=== PATIENT | male | born 1975 | race Caucasian/White ===

== ENCOUNTER 2017-05-22 06:33 | Emergency (ER) | payer OTHER, SELFPAY ==
[2017-05-22] MEDS ORDERED: Azithromycin 250 MG TAB ONE (07:30)
== END 2017-05-22 07:40 | disposition home or self-care (01) ==
LOC: BURERS 06:33
DX: J02.0 Streptococcal pharyngitis (principal); F17.210 Nicotine dependence, cigarettes, uncomplicated
CPT/HCPCS: 87430; 99283

== ENCOUNTER 2018-03-03 07:53 | Emergency (ER) | payer SELFPAY ==
[2018-03-03 08:39] LABS: #Basophils 0.2 thou/uL (0.0-0.2); #Eosinphils 0.2 thou/uL (0.0-0.7); #Monocytes 0.9 thou/uL (0.11-0.59); #Neutrophils 10.4 thou/uL (1.40-6.50); %Basophils 1.3 % (0.0-1.0); %Eosinophils 1.4 % (0.0-10.0); %Lymphocytes 14.7 % (21.0-51.0); %Monocytes 6.3 % (0.0-10.0); %Neutrophils 76.2 % (42.0-75.0); Hemoglobin 16.2 g/dL (14.0-18.0); Mean Corpuscular HGB CONC 35.5 g/dL (32.0-36.0); Mean Corpuscular Hemoglobin 32.4 pg (27.0-31.0); Mean Corpuscular Volume 91.1 fL (78.0-98.0); Mean Platelet Volume 9.4 fL (7.4-10.4); Platelet Count 224 thou/uL (130-400); RBC Distribution Width 11.9 % (11.5-14.5); Red Blood Cell (RBC) Count 4.99 mill/uL (4.70-6.10); White Blood Cell (WBC) Count 13.7 thou/uL (4.8-10.8)
--- NOTE | 2018-03-03 08:52 | RAD ---
PORTABLE AP CHEST: Date: 03/03/18 HISTORY: Chest pain. COMPARISON: None available. FINDINGS: Cardiac silhouette and pulmonary vasculature are within normal limits. Calcified bilateral hilar lymp h nodes are seen, related to prior granulomatous disease. Lungs are clear. Osseous structures are int act. There is deformity involving the middle one-third right clavicle, likely related to remote heale d fracture. No other findings. IMPRESSION: No acute cardiopulmonary process. POS: H
[2018-03-03 09:00] LABS: ALT (SGPT) 13 U/L (8-55); AST (SGOT) 18 U/L (5-34); Albumin 4.3 g/dL (3.5-5.0); Alkaline Phosphatase 74 U/L (40-150); Anion Gap 12 mmol/L (10-20); BUN (Urea Nitrogen) 14 mg/dL (8.9-20.6); Bilirubin, Total 0.4 mg/dL (0.2-1.2); CK (CPK) 153 U/L (30-200); Calc. Creatinine Clearance 0 mL/min (70-130); Calcium 9.7 mg/dL (7.8-10.44); Carbon Dioxide 24 mmol/L (22-29); Chloride 107 mmol/L (98-107); Estimated GFR-MDRD Greater than 90; Globulin 3.3 g/dL (2.4-3.5); Glucose 92 mg/dL (70-105); Potassium 4.2 mmol/L (3.5-5.1); Protein, Total 7.6 g/dL (6.0-8.3); Sodium 139 mmol/L (136-145)
[2018-03-03 09:01] LABS: CKMB 1.3 ng/mL (0-6.6); Troponin I Less than 0.010 ng/mL (< 0.028)
[2018-03-03 09:10] LABS: Amphetamine Not Detected (NotDetected); Barbiturates Screen Not Detected (NotDetected); Benzodiazepine Screen Detected (NotDetected); Cocaine Metabolite Screen Not Detected (NotDetected); Medtox Control Line Valid? VALID (VALID); Methadone Not Detected (NotDetected); Methamphetamine Not Detected (NotDetected); Opiate Screen Not Detected (NotDetected); Oxycodone Screen Not Detected (NotDetected); Phencyclidine (PCP) Not Detected (NotDetected); THC/Cannabinoid Screen Not Detected (NotDetected); Tricyclic Screen Not Detected (NotDetected)
== END 2018-03-03 09:39 | disposition short-term general hospital (02) ==
LOC: BURERS 07:53
DX: I20.0 Unstable angina (principal); F41.9 Anxiety disorder, unspecified; F17.210 Nicotine dependence, cigarettes, uncomplicated
CPT/HCPCS: 71045; 80053; 80306; 82553; 84484; 85025; 85379; 93005; 94760